=== PATIENT | female | born 1990 | race Two or more races ===

== ENCOUNTER 2017-07-16 20:55 | Emergency (ER) | payer SELFPAY ==
[~2017-07-16] VITALS: Ht 157.5 cm; Wt 74.8 kg
[2017-07-16 21:20] VITALS: BP 103/70
[2017-07-16] MEDS ORDERED: Norco 5mg/325mg tab ORAL ONE (21:30)
--- NOTE | 2017-07-16 21:33 | Emergency Room Report ---
History of Present Illness General Chief Complaint: Multiple Trauma/Fall Source: Patient Present Illness HPI This is a 26-year-old female with no past medical history. She presents with chief complaint of pain diffusely. She had a fall today around 5 PM. She said she was in a furniture store tripped over some wire that got wrapped around her right ankle. She said she fell and hit her head on the floor. She complaining of headache which is 10 out of 10. No relief with ibuprofen and Tylenol. She took ibuprofen even though she claimed she has allergy to Toradol. Said she's been vomiting. Also complaining of right ankle pain, left knee pain and back pain. Worse with walking. No incontinence of bowel or urine. No focal deficit. Allergies: Coded Allergies: CODEINE (Verified Allergy, Unknown, 07/16/17) KETOROLAC (Verified Allergy, Unknown, 07/16/17) METOCLOPRAMIDE (Verified Allergy, Unknown, 07/16/17) Uncoded Allergies: PENICILLIN (Allergy, Unknown, 07/16/17) Patient History Past Medical History: see triage record, old chart reviewed Past Surgical History: none Pertinent Family History: none Social History: Denies: smoking Last Menstrual Period: 07/12/17 Now: No : 0 Para: 0 Immunizations: other Reviewed Nursing Documentation: PMH: Agreed, PSxH: Agreed Nursing Documentation-PMH Past Medical History: No Stated History Review of Systems Eye: Denies: eye pain, blurred vision ENT: Denies: ear pain, nose congestion, throat swelling Respiratory: Denies: cough, shortness of breath Cardiovascular: Denies: chest pain, palpitations Gastrointestinal: Denies: abdominal pain, diarrhea, nausea, vomiting Musculoskeletal: Reports: back pain, joint pain Skin: Denies: rash Neurological: Reports: headache, Denies: numbness Endocrine: Denies: increased thirst, increased urine Hematologic/Lymphatic: Denies: easy bruising All Other Systems: negative except mentioned in HPI Physical Exam Vital Signs Date Time Temp Pulse Resp B/P (MAP) Pulse Ox O2 Delivery O2 Flow Rate FiO2 07/16/17 21:17 98.6 94 16 103/70 99 Room Air vitals normal Sp02 EP Interpretation: reviewed, normal General Appearance: well appearing, no apparent distress, alert Head: normocephalic, atraumatic, other - Patient complaining of pain to the right parietal area. There is no evidence of any trauma. No hematoma. No abrasion. No laceration. Eyes: bilateral eye PERRL, bilateral eye EOMI ENT: hearing grossly normal, normal pharynx Neck: full range of motion, supple, no meningismus Respiratory: chest non-tender, lungs clear, normal breath sounds Cardiovascular #1: regular rate, rhythm, no murmur Gastrointestinal: normal bowel sounds, non tender, no mass, no organomegaly, no bruit, non-distended Musculoskeletal: back normal - Tenderness to the right lower paraspinous muscle of the lumbar area. No midline tenderness. No step-off., normal range of motion, other - Patient has tenderness to the right ankle diffusely. Again no evidence of any trauma. No edema. No abrasion .Ankle is stable. Psychiatric: mood/affect normal Skin: warm/dry Medical Decision Making Diagnostic Impression: Primary Impression: Multiple injuries due to trauma Additional Impressions: Head injury, acute Qualified Codes: S09.90XA - Unspecified injury of head, initial encounter Back pain Qualified Codes: M54.5 - Low back pain Ankle pain, right Qualified Codes: M25.571 - Pain in right ankle and joints of right foot Left knee pain Qualified Codes: M25.562 - Pain in left knee ER Course Patient presents with head injury with headache. No evidence of any bleed. No evidence of any fracture. She also complaining of soft tissue pain without overt evidence of injury. No edema. No abrasion or laceration. We'll discharge home. Other X-Ray Diagnostic Results Other X-Ray Diagnostic Results #1: X-Ray ordered: Lumbar x-rays # of Views/Limited Vs Complete: 3 View Indication: Pain EP Interpretation: Yes Interpretation: no dislocation, no soft tissue swelling, no fractures Impression: No acute disease Electronically Signed by: Electronically signed by Jose Pederson MD Other X-Ray Diagnostic Results #2: X-Ray ordered: Right ankle xrays # of Views/Limited Vs Complete: 3 View Indication: Pain EP Interpretation: Yes Interpretation: no dislocation, no soft tissue swelling, no fractures Impression: No acute disease Electronically Signed by: Electronically signed by Jose Pederson MD Other X-Ray Diagnostic Results #3: X-Ray ordered: Left knee xrays # of Views/Limited Vs Complete: 3 View Indication: Pain EP Interpretation: Yes Interpretation: no dislocation, no soft tissue swelling, no fractures Impression: No acute disease Electronically Signed by: Electronically signed by Jose Pederson MD CT/MRI/US Diagnostic Results CT/MRI/US Diagnostic Results : Imaging Test Ordered: CT head Impression negative per radiologist Last Vital Signs Date Time Temp Pulse Resp B/P (MAP) Pulse Ox O2 Delivery O2 Flow Rate FiO2 07/16/17 21:17 98.6 94 16 103/70 99 Room Air Status: improved Disposition: HOME, SELF-CARE Condition: Stable Scripts Meloxicam* (MOBIC*) 15 Mg Tablet 15 MG ORAL DAILY, #30 TAB 0 Refills Prov: JOSE PEDERSON M.D. 07/16/17 Additional Instructions: Ice pack to the area. Followup with your Dr. in 7 days as needed. Return if symptom worsen. JOSE PEDERSON M.D. Jul 16, 2017 21:33
[2017-07-16] MEDS ORDERED: MOBIC15 MG ORAL (21:44)
[2017-07-16 22:54] VITALS: BP 103/70
--- NOTE | 2017-07-17 09:42 | Diagnostic Imaging Report ---
Indication: Head trauma. Headache Technique: Contiguous 5 mm thick transaxial imaging of the head obtained in a Siem[employer] Sensation [address] scanner. Soft tissue and bone windows generated. Automatic Exposure Control was utilized. Total Dose length Product (DLP): [address] Dose Index Volume (CTDIvol): 70.38, 0.15 mGy Comparison: none Findings: The size and configuration of the cortical sulci, basal cisterns, and ventricles are within normal limits for age. There is no mass effect, midline shift, or edema identified. There is no evidence of acute hemorrhage or abnormal intra-axial or extra-axial fluid collections. The bones and soft tissues are unremarkable. Mucosal thickening in the right sphenoid sinus noted. Impression: No mass effect, edema or acute bleed. Right sphenoid sinusitis. [facility] has communicated the preliminary results to the Emergency Department. Their findings are largely concordant with this report. The CT scanner at [facility] is accredited by the [employer] and the scans are performed using dose optimization techniques as appropriate to a performed exam including Automatic Exposure control.
--- NOTE | 2017-07-17 10:57 | Diagnostic Imaging Report ---
Indication: Back pain Comparison: None Findings: 3 views of the lumbar spine were obtained. No acute fracture or malalignment is identified. Vertebral body heights and disk spaces are well maintained. Posterior elements are unremarkable. There is a slight convexity of the lumbar spine to the left which could be due to mild scoliosis or positional in nature. Impression: No acute findings. Possible scoliosis
--- NOTE | 2017-07-17 10:58 | Diagnostic Imaging Report ---
Indication: Pain 3 views of the left knee were obtained. Findings: No acute fracture, malalignment, or joint effusion are identified. Joint space is relatively well-maintained. Impression: Negative for acute injury
--- NOTE | 2017-07-17 11:01 | Diagnostic Imaging Report ---
Indication: Pain right ankle Comparison: None Findings: 3 views of the right ankle obtained. No acute fracture, malalignment, periostitis, or osteochondral defects are identified. Soft tissues are unremarkable. Impression: Negative examination
== END 2017-07-16 22:57 | disposition home or self-care (01) ==
LOC: EMR 21:50
DX: S09.8XXA Other specified injuries of head, initial encounter (principal); W01.0XXA Fall on same level from slipping, tripping and stumbling without subsequent striking against object, initial encounter; Y92.512 Supermarket, store or market as the place of occurrence of the external cause; R51 Headache; M25.571 Pain in right ankle and joints of right foot; M25.562 Pain in left knee; M54.5 Low back pain; J32.3 Chronic sphenoidal sinusitis; Z88.6 Allergy status to analgesic agent; Z88.0 Allergy status to penicillin
CPT/HCPCS: 70450; 72020; 81025; 99284